=== PATIENT | female | born 1940 | race Caucasian/White ===

== ENCOUNTER 2016-10-17 14:42 | Inpatient (IN) | payer MEDICAID, MEDICARE ==
[~2016-10-17] VITALS: Ht 162.6 cm; Wt 75.7 kg
--- NOTE | 2016-10-17 14:50 | NUR ---
PT REC'D TO ER C/O CP VIA EMS / PRT TOOK NITRO X2 IN FIELD STATED FEELING BETTER EMS SAID TO GET CHECKED AT THE ER. IV RT AC 20 LABS DRAWN SENT TO LAB FAMILY AT BEDSIDE , PT QUIET RESTING EKG SR . O2 SATS 10 2L N/CAWAITING EVALUATION BY ER PROVIDER.
[2016-10-17 15:02] LABS: BASOPHILS # (AUTO) 0.1 /CMM (0.0-0.2); BASOPHILS % (AUTO) 0.8 % (0.0-2.0); EOSINOPHILS # (AUTO) 0.1 /CMM (0.0-0.7); EOSINOPHILS % (AUTO) 0.8 % (0.0-6.0); HEMATOCRIT 36 % (33-45); HEMOGLOBIN 12.4 g/dL (11.5-14.8); LYMPHOCYTES # (AUTO) 4.5 /CMM (0.8-4.8); LYMPHOCYTES % (AUTO) 36.6 % (20.0-44.0); MEAN CORPUSCULAR HEMOGLOBIN 30 PG (26.0-33.0); MEAN CORPUSCULAR HGB CONC 35 g/dl (31.0-36.0); MEAN CORPUSCULAR VOLUME 87 fL (82-100); MONOCYTES # (AUTO) 0.7 /CMM (0.1-1.30); NEUTROPHILS % (AUTO) 55.8 % (43.0-81.0); PLATELET COUNT (AUTO) 306 /CMM (150-450); RDW COEFFICIENT OF VARIATION 11.9 (11.5-15.0); RED BLOOD CELL COUNT(AUTO) 4.08 MIL/uL (4.0-5.2); WHITE BLOOD COUNT (AUTO) 12.4 K/uL (4.3-11.0)
[2016-10-17 15:13] LABS: CARBON DIOXIDE 28 mmol/L (21-32); CHLORIDE 102 mmol/L (98-107); CREATININE 0.8 mg/dL (0.6-1.3); GLUCOSE 133 mg/dL (74-106); POTASSIUM 3.7 mmol/L (3.5-5.1); SODIUM SERUM 138 mmol/L (136-145); UREA NITROGEN, BLOOD 21 mg/dL (7-18)
[2016-10-17 15:16] LABS: CALCIUM, SERUM 8.3 mg/dL (8.5-10.1)
[2016-10-17 15:17] LABS: INR 0.96 (0.87-1.13)
[2016-10-17 15:19] LABS: ALANINE AMINOTRANSFERASE 24 U/L (12-78); ALBUMIN 3.5 g/dL (3.4-5.0); ALKALINE PHOSPHATASE 38 U/L (46-116); ASPARTATE AMINOTRANSFERASE 22 U/L (15-37); BILIRUBIN,DIRECT 0.1 mg/dL (0.0-0.2); BILIRUBIN,TOTAL 0.4 mg/dL (0.2-1.0); TOTAL PROTEIN, SERUM 6.7 g/dL (6.4-8.2)
[2016-10-17 15:21] LABS: TROPONIN I < 0.017 ng/mL (0.00-0.056)
[2016-10-17] MEDS ORDERED: GABA-532 PO (16:07)
[2016-10-17] MEDS ORDERED: OMEP20TA68 PO (16:07)
[2016-10-17] MEDS ORDERED: CALC500T71 PO (16:07)
[2016-10-17] MEDS ORDERED: NITR0.4T SL (16:07)
[2016-10-17] MEDS ORDERED: PROP20TA7 PO (16:07)
[2016-10-17] MEDS ORDERED: CYCL5TAB PO (16:07)
[2016-10-17] MEDS ORDERED: LORA0.5T PO (16:07)
[2016-10-17] MEDS ORDERED: HYDR25TA4 PO (16:07)
[2016-10-17] MEDS ORDERED: ASPI-991 PO (16:07)
[2016-10-17] MEDS ORDERED: ATOR40TA PO (16:07)
[2016-10-17] MEDS ORDERED: CLOP75TA2 PO (16:07)
--- NOTE | 2016-10-17 16:58 | NUR ---
REPORT CALLLED TO FLOOR [facility] PT STABLE AMB TO BR WITH ASSISTANCWE
[2016-10-17 17:30] VITALS: BP 122/63
--- NOTE | 2016-10-17 17:30 | NUR ---
FOOD SERVICE COORDINATOR NOTES PATIENT ARRIVED VIA WHEELCHAIR NO SOB OR ACUTE DISTRESS NOTED. DENIES ANY CHEST PAIN OR SOB. ALERT, ORIENTED X4, LAO SPEAKING. SKIN INTACT. FAMILY AT BEDSIDE. PATIENT REPORTS HAVING CHEST PAIN AT HOME CALLED 911 TOOK HER NITRO. SUBLINGUAL AND PARAMEDICS ALSO GAVE NITRO. PATIENT STATES HER PAIN WAS RELIVED. PATIENT ORIENTED TO ROOM AND FLOOR. CALL LIGHT PROVIDED. WILL CONTINUE TO MONITOR.
[2016-10-17] MEDS ORDERED: ZOLPIDEM TARTRATE 5 MG TABLET PO PRN (18:00)
[2016-10-17] MEDS ORDERED: Z GUARD REMEDY 2 OZ OINT TP PRN (18:00)
[2016-10-17] MEDS ORDERED: NITROGLYCERIN 0.4 MG/TAB BOTTLE SL PRN (18:00)
[2016-10-17] MEDS ORDERED: MAGNESIUM HYDROXIDE 30 ML UDC PO PRN (18:00)
[2016-10-17] MEDS ORDERED: HYDROCODONE/APAP 5/325MG 1 EACH TABLET PO PRN (18:00)
[2016-10-17] MEDS ORDERED: MAG HYDROX/AL HYDROX/SIMETH 30 ML UDC PO PRN (18:00)
[2016-10-17] MEDS ORDERED: MORPHINE SULFATE INJ 2 MG/ML DISP.SYRIN IV PRN (18:00)
[2016-10-17] MEDS ORDERED: ONDANSETRON HCL/PF 4 MG/2 ML VIAL IVP PRN (18:00)
[2016-10-17] MEDS ORDERED: ACETAMINOPHEN 325 MG TABLET PO PRN (18:00)
--- NOTE | 2016-10-17 18:48 | NUR ---
PRODUCT SAFETY ASSOCIATE NOTES PATIENT IN BED RESTING NO SOB OR ACUTE DISTRESS NOTED. ON TELE MONITORING SINUS RHYTHM . ALL DUE MEDICATIONS PROVIDED. ALL NEEDS MET. PERIPHERAL IV INTACT ON RIGHT AC PATENT,INTACT. WILL ENDORSE TO PM SHIFT ALISIA.
--- NOTE | 2016-10-17 19:45 | NUR ---
NICANOR INITIAL NOTES SEEN PT IN HER ROOM LYING DOWN WITH FAMILY AT THE BEDSIDE. PT DENIES ANY CHEST PAIN OR ANY DISCOMFORT TRANSLATED BY FAMILY. STILL ON MONITOR SR HEART RATE 65. TOLD TO THE PT HER MEDICATION TONIGHT AND EDUCATE HER TRANSLATED BY HER SON. SHE UNDERSTOOD WELL. RE-ORIENTED HOW TO USED THE CALL LIGHT AND AT THE SAME TIME ENCOURAGE HER TO USE IT IF SHE NEEDS SOME HELPED. KEPT HER COMFORTABLE AT ALL TIMES. PLACE CALL LIGHT AT REACH. WILL CONTINUE TO MONITOR.
[2016-10-17 20:00] VITALS: BP_SYST 122; BP_SYST 126; BP_DIAS 66
[2016-10-17] MEDS: ENOXAPARIN SODIUM 40 MG/0.4 ML DISP.SYRIN SQ SCH (21:08)
[2016-10-17] MEDS: CYCLOBENZAPRINE 10 MG TABLET PO SCH (22:03)
[2016-10-17] MEDS: LORAZEPAM 0.5 MG TABLET PO PRN (22:04)
--- NOTE | 2016-10-17 22:11 | NUR ---
MANAGER HI/NOTES ROUTINE MEDS GIVEN AND ATIVAN PER PT REQUESTED TO HELPED HER TO SLEEP . EDUCATE HER REGARDING POSSIBLE SIDE EFFECTS , BED ALARM SET FOR PT SAFETY. WILL CONTINUE TO MONITOR. SON REMAINS AT THE BEDSIDE . WILL CONTINUE TO MONITOR. PLACE CALL LIGHT AT REACH.
[2016-10-18] VITALS (7 sets, daily range): BP systolic 115–130; BP diastolic 59–71
--- NOTE | 2016-10-18 05:39 | NUR ---
TELE NET PROGRAMMER ANALYST NOTES PT SLEEPING COMFORTABLY IN BED WITHOUT ANY ACUTE DISTRESS NOTED. TELE SR PER MONITOR. KEPT HER WARM AND COMFORTABLE AT ALL TIMES. PLACE CALL LIGHT AT REACH.
--- NOTE | 2016-10-18 06:59 | NUR ---
TELE PRESCRIPTION BENEFIT SPECIALIST CLOSING NOTES PT AWAKE NOW AND WINDOWS DEPLOYMENT TECHNICIAN INSIDE THE ROOM AND DRAWING SOME BLOOD FOR ROUTINE CHECKED. SLEPT WELL AFTER ATIVAN GIVEN. NO SIGNS OF ANY DISCOMFORT OR ANY CHEST PAIN NOTED TUR THE NIGHTS. DUE MEDS GIVEN. TELE SR PER MONITOR. VITAL SIGNS WITHIN NORMAL LIMIT. KEPT HER WARM AND COMFORTABLE AT ALL TIMES. SON JUST CAME BACK AND WAITING FOR THE MARINE ENGINEERING PROFESSOR AND PT PRIMARY MD. ENDORSE TO AM NURSE FOR CONTINUITY OF CARE. PLACE CALL LIGHT AT REACH.
[2016-10-18 07:10] LABS: BASOPHILS % (AUTO) 0.2 % (0.0-2.0); EOSINOPHILS % (AUTO) 0.5 % (0.0-6.0); HEMATOCRIT 38 % (33-45); HEMOGLOBIN 12.9 g/dL (11.5-14.8); LYMPHOCYTES % (AUTO) 34.2 % (20.0-44.0); MEAN CORPUSCULAR HEMOGLOBIN 30 PG (26.0-33.0); MEAN CORPUSCULAR HGB CONC 35 g/dl (31.0-36.0); MEAN CORPUSCULAR VOLUME 88 fL (82-100); MONOCYTES # (AUTO) 0.5 /CMM (0.1-1.30); MONOCYTES % (AUTO) 6.1 % (2.0-12.0); NEUTROPHILS # (AUTO) 5.2 /CMM (1.8-8.9); PLATELET COUNT (AUTO) 290 /CMM (150-450); RDW COEFFICIENT OF VARIATION 12.7 (11.5-15.0); RED BLOOD CELL COUNT(AUTO) 4.28 MIL/uL (4.0-5.2); WHITE BLOOD COUNT (AUTO) 8.8 K/uL (4.3-11.0)
[2016-10-18 07:27] LABS: CALCIUM, SERUM 8.5 mg/dL (8.5-10.1); CARBON DIOXIDE 30 mmol/L (21-32); CHLORIDE 107 mmol/L (98-107); CREATININE 0.5 mg/dL (0.6-1.3); GLUCOSE 98 mg/dL (74-106); MAGNESIUM 1.9 mg/dL (1.8-2.4); POTASSIUM 4.3 mmol/L (3.5-5.1); SODIUM SERUM 143 mmol/L (136-145); UREA NITROGEN, BLOOD 18 mg/dL (7-18)
[2016-10-18] MEDS: PANTOPRAZOLE 40 MG TABLET.DR PO SCH (07:30)
[2016-10-18 07:34] LABS: CHOLESTEROL 193 mg/dL (<200); HDL CHOLESTEROL 32 mg/dL (40-60); LDL 116 mg/dL (0-99); TRIGLYCERIDES 204 mg/dL (30-150)
[2016-10-18] MEDS ORDERED: REGADENOSON 0.4 MG/5 ML DISP.SYRIN IVP ONE (08:30)
[2016-10-18] MEDS: HYDROCHLOROTHIAZIDE 25 MG TABLET PO SCH (09:00)
[2016-10-18] MEDS: PROPRANOLOL HCL 40 MG TABLET PO SCH (09:00)
[2016-10-18] MEDS: CLOPIDOGREL BISULFATE 75 MG TABLET PO SCH (09:00)
[2016-10-18] MEDS: GABAPENTIN 100 MG CAPSULE PO SCH ×2 (09:00→17:00)
[2016-10-18] MEDS: ASPIRIN EC 81 MG TABLET.DR PO SCH (09:00)
[2016-10-18] MEDS: CALCIUM CARBONATE (1250) 500 MG TABLET PO SCH (09:00)
[2016-10-18] MEDS: ATORVASTATIN 40 MG TABLET PO SCH (09:00)
--- NOTE | 2016-10-18 18:48 | NUR ---
PATIENT RETURNED FROM PART ONE OF STRESS TEST AT 18 50 ABLE TO EAT AND DRINK, SHE WILL BE PICKED UP AT 19 45 FOR SECOND PART PT AND FAMILY AWARE. DIET CALLED FOR AND FRESH WATER GIVEN FAMILY AT BEDSIDENO C/O PAIN OR SHORTNESS OF BREATH
[2016-10-18] MEDS: ENOXAPARIN SODIUM 40 MG/0.4 ML DISP.SYRIN SQ SCH (21:13)
[2016-10-18] MEDS: CYCLOBENZAPRINE 10 MG TABLET PO SCH (21:14)
[2016-10-18] MEDS: LORAZEPAM 0.5 MG TABLET PO PRN (21:14)
[2016-10-19] VITALS: BP 111/58
[2016-10-19 04:00] VITALS: BP 106/65
--- NOTE | 2016-10-19 06:17 | NUR ---
WOOD FILLER NOTE PATIENT STABLE. SLEEPING WELL. NO RESPIRATORY DISTRESS OR SOB. NO S/S OF PAIN AT THIS TIME. WILL ENDORSE TO DAY SHIFT FOR ALISIA.
[2016-10-19] MEDS: PANTOPRAZOLE 40 MG TABLET.DR PO SCH (06:33)
[2016-10-19 07:00] VITALS: BP 112/56
--- NOTE | 2016-10-19 07:23 | NUR ---
TELE/RN NOTES RECEIVED PATIENT RESTING IN BED, AWAKE AND ORIENTED X3, FINNISH SPEAKING WITH DAUGHTER AT BEDSIDE. PATIENT APPEARS STABLE WITH NO S/S OF DISTRESS NOTED, NO COMPLAINTS OF PAIN OR DISCOMFORT. PER TELE READING SINUS RHYTHM HR 81. IV TO RIGHT AC INTACT AND HEP LOCK. PENDING DISCHARGE FOR TODAY. SAFETY MEASURES RENDERED, CALL LIGHT PLACED WITHIN EASY REACH. WILL CONTINUE TO MONITOR.
[2016-10-19 09:00] VITALS: BP 109/56
[2016-10-19] MEDS: HYDROCHLOROTHIAZIDE 25 MG TABLET PO SCH (09:00)
[2016-10-19] MEDS: PROPRANOLOL HCL 40 MG TABLET PO SCH (09:00)
[2016-10-19] MEDS: CLOPIDOGREL BISULFATE 75 MG TABLET PO SCH (09:24)
[2016-10-19] MEDS: ATORVASTATIN 40 MG TABLET PO SCH (09:24)
[2016-10-19] MEDS: GABAPENTIN 100 MG CAPSULE PO SCH (09:25)
[2016-10-19] MEDS: CALCIUM CARBONATE (1250) 500 MG TABLET PO SCH (09:25)
[2016-10-19] MEDS: ASPIRIN EC 81 MG TABLET.DR PO SCH (09:26)
--- NOTE | 2016-10-19 10:35 | NUR ---
D/C NOTE DISCHARGE ORDER RECEIVED BY COMFORT STATION SUPERVISOR. ALL DISCHARGE FORMS COMPLETED AND SIGNED. REVIEWED ALL DISCHARGE ORDERS WITH PATIENT AND FAMILY, INSTRUCTED THEM TO FOLLOW UP WITH PRIMARY CARE PHYSICIAN IN 1 WEEK AND CONSULT WITH POLICY WRITER TYPIST. ALL DOCUMENTS COPIED AND PLACED IN DISCHARGE FOLDER. IV REMOVED AND COVERED PROPERLY. ESCORTED PATIENT DOWNSTAIRS WHERE LEFT WITH DAUGHTER VIA PRIVATE CAR.
== END 2016-10-19 10:25 | disposition home or self-care (01) | DRG 756 ==
LOC: ER 14:44 → TELE 17:03 → MED 10-19 10:20
PROVIDERS: ADMIT Internal Medicine; ATTEND Internal Medicine
DX: F41.9 Anxiety disorder, unspecified (principal); I10 Essential (primary) hypertension; I25.10 Atherosclerotic heart disease of native coronary artery without angina pectoris; E78.5 Hyperlipidemia, unspecified; K21.9 Gastro-esophageal reflux disease without esophagitis; M19.90 Unspecified osteoarthritis, unspecified site; Z98.61 Coronary angioplasty status
CPT/HCPCS: 36415; 71010-TC; 80048-TC; 80061-TC; 80076-TC; 83735-TC; 84100-TC; 84484-TC; 85025-TC; 85730-TC; 87081-TC; 93307-TC; A4606; A9502; J1650; J2785; Z7610